=== PATIENT | male | born 1955 | race Caucasian/White ===

== ENCOUNTER → 2019-11-18 | Day surgery (SDC) | payer OTHER ==
[2019-11-08 14:48] LABS: HEMATOCRIT 42.1 % (38.2-49.6); HEMOGLOBIN 13.8 g/dL (14.0-18.0)
[2019-11-08 15:05] LABS: ANION GAP 15.7 mmol/L (8-16); BLOOD UREA NITROGEN 12 mg/dL (7-26); BUN/CREATININE RATIO 14 (6-25); CALCIUM 9.7 mg/dL (8.4-10.2); CARBON DIOXIDE 27 mmol/L (22-29); CHLORIDE 103 mmol/L (98-107); CREATININE, SERUM 0.87 mg/dL (0.72-1.25); EST GLOMERULAR FILTRATION RATE > 60 ML/MIN (60-); GLUCOSE 102 mg/dL (74-118); POTASSIUM 3.7 mmol/L (3.5-5.1); SODIUM 142 mmol/L (136-145)
[~2019-11-18] MED LIST: ALBUTEROL0.63 MG/3 INH; BUPIVACAINE HC 0.75% PF 10ML VIAL INJ ONE; CHONDR SU A NA/HYALUR SOD 1 EACH KIT IO ONE; CLARITIN PO; CRESTOR10 MG PO; CYCLOPENTOLATE HCL 2% OPTH SOLN 2 ML BTL OP ONE; EPINEPHRINE HCL 1:1000 1ML 1 MG/ML AMP ONE; GATIFLOXACIN(OPTH) 5 ML LIQD ONE; LIDOCAINE 2% /EPINEPHRINE 20 ML SDV INJ ONE; LIDOCAINE HCL 2% LOCAL INJ 5 ML SDV VIAL INJ ONE; LIDOCAINE HCL-PF 4% 40 MG/1 ML 5ML AMP ONE; MIDAZOLAM HCL 2 MG/2 ML VIAL ONE; NASOCORT; PHENYLEPHRINE HCL 2 ML DROPS ONE; PILOCARPINE HCL(OPTH) 15 ML LIQD ONE; POVIDONE IODINE 5% (OPTH) 30 ML BTL ONE; PROPOFOL IV EMULSION 10 MG/ML 20 ML VIAL ONE; TOBRAMYCIN/DEXAMETHASONE(OPTH) 3.5 GM TUBE ONE
[2019-11-18 11:10] VITALS: BP 123/65
== END | disposition home or self-care (01) ==
LOC: OR 05:56
PROVIDERS: ATTEND Ophthalmology
DX: H25.12 Age-related nuclear cataract, left eye (principal); K21.9 Gastro-esophageal reflux disease without esophagitis; J45.909 Unspecified asthma, uncomplicated; Z01.810 Encounter for preprocedural cardiovascular examination; Z01.812 Encounter for preprocedural laboratory examination
CPT/HCPCS: 36415; 66984; 80048; 85014; 85018; 93005; J0171; J2001 ×2; J2250; J2704; V2632